=== PATIENT | female | born 1960 | race Caucasian/White ===

== ENCOUNTER 2017-03-05 10:56 | Emergency (ER) | payer BC ==
--- NOTE | ~2017-03-05 | US67 ---
[facility] A Service of [facility] RADIOLOGY TEXT RESULTS PATIENT: MELINA GARCIA LOCATION: SED : 56 UNIT #: [id number] AGE: [address]: Merlin Gipson MD SEX: F ORDER DR: [id number] [address] [address] [id number] E MR#: [id number] Acc #: [id number] NAME: MELINA GARCIA : 1960 SEX: F STUDY DATE/TIME: 03/05/2017 11:41 UNIT: SED ROOM: STUDY DESCRIPTION: Gallbladder Attending Physician: Merlin Gipson M.D. Ordering Physician: Merlin Gipson M.D. Primary Care Physician: Malka Dobson A.P.R.N. MEDICAL IMAGING REPORT This report is preliminary unless electronic signature is present. EXAM Gallbladder sonogram HISTORY 56-year-old female right upper quadrant pain for 1 day. No prior surgery. FINDINGS Real time examination demonstrates diffuse increased echogenicity of the liver which may indicate fatty infiltration. Study is technically limited due to patient's body habitus. No ductal dilatation is identified. The common duct measures 2.1 mm. Gallbladder is only minimally distended. No definitive gallstones or wall thickening. Pancreas poorly visualized. The right kidney unremarkable except for a exophytic cyst off the lower pole of the right kidney measuring up to 4.4 cm. No free fluid. IMPRESSION 1. A technically limited study due to the patient's body habitus. Patient also had not been n.p.o. for the exam. 2. Minimal gallbladder distension but no findings to suggest acute cholecystitis and no evidence of definitive gallstone disease. 3. 4.4 cm exophytic cyst off the lower pole right kidney. 4. Suspected fatty infiltration liver. Dictated by... Aniyah James M.D. THIS IS AN ELECTRONICALLY VERIFIED REPORT Aniyah James M.D. at 03/05/2017 5:13 PM TYRON/janette TD: 03/05/2017 16:54 JOB #: [id number] [facility] A Service of [facility] RADIOLOGY TEXT RESULTS PATIENT: MELINA GARCIA LOCATION: SED : 56 UNIT #: [id number] AGE: [address]: Merlin Gipson MD SEX: F ORDER DR: MEDICAL IMAGING REPORT Page 1 of 1
--- NOTE | ~2017-03-05 | EKG ---
PATIENT: MELINA GARCIA UNIT #: [id number] Ventricular Rate: 96 BPM Atrial Rate: 96 BPM P-R Interval: 146 ms QRS Duration: 74 ms Q-T Interval: 352 ms QTC Calculation(Bezet): 444 ms P [place]: 62 degrees Calculated R [place]: 42 degrees Calculated T [place]: 38 degrees Diagnosis Line: Normal sinus rhythm Diagnosis Line: Cannot rule out Anterior infarct , age Diagnosis Line: undetermined Diagnosis Line: Abnormal ECG Diagnosis Line: No previous ECGs available Diagnosis Line: Confirmed by BRIAN GARCIA MD ([id number]) on Diagnosis Line: 03/08/2017 10:41:08 AM INTERPRETING MD: JOSE WANG
--- NOTE | ~2017-03-05 | CR72 ---
[facility] A Service of [facility] RADIOLOGY TEXT RESULTS PATIENT: MELINA GARCIA LOCATION: SED : 56 UNIT #: [id number] AGE: [address]: Merlin Gipson MD SEX: F ORDER DR: [id number] [place] [address] [id number] E MR#: [id number] Acc #: [id number] NAME: MELINA GARCIA : 1960 SEX: F STUDY DATE/TIME: 03/05/2017 11:14 UNIT: SED ROOM: STUDY DESCRIPTION: CR Chest Single View Portable Attending Physician: Merlin Gipson M.D. Ordering Physician: Merlin Gipson M.D. Primary Care Physician: Malka Dobson A.P.R.N. MEDICAL IMAGING REPORT This report is preliminary unless electronic signature is present. EXAM Chest portable 03/05/2017 1114 hours HISTORY 56-year-old woman complaining of midsternal chest pain, upper gastric pain radiating to the back since last night, 11:30 p.m. COMPARISON None. FINDINGS Portable upright chest demonstrates low lung volumes. Heart size is at the upper limits of normal. Hilar contours are normal. Lungs are clear and no effusions are seen. IMPRESSION Low lung volume film with no definite acute cardiopulmonary findings. Dictated by... Lea Castellano M.D. THIS IS AN ELECTRONICALLY VERIFIED REPORT Lea Castellano M.D. at 03/05/2017 7:05 PM LIZA/kei TD: 03/05/2017 15:54 JOB #: [id number] MEDICAL IMAGING REPORT Page 1 of 1
[2017-03-05] MEDS ORDERED: ZOCOR (11:18)
[2017-03-05] MEDS ORDERED: LISINOPRIL (11:18)
[2017-03-05] MEDS ORDERED: HCTZ (11:18)
[2017-03-05] MEDS ORDERED: SYNTHROID (11:18)
[2017-03-05 11:27] LABS: BASOPHIL% 0.6 % (0-2.5); EOSINOPHIL# 0.1 X10e3 (0-0.7); EOSINOPHIL% 1.3 % (0.0-7.0); HEMATOCRIT 42.9 % (35.0-45.0); HEMOGLOBIN 14.9 gm/dL (12.0-16.0); LYMPHOCYTE# 1.7 X10e3 (1.0-3.5); LYMPHOCYTE% 20.4 % (17.0-45.0); MEAN CORPUSCULAR HEMOGLOBIN 31.3 PG (28-34); MEAN CORPUSCULAR HGB CONC 34.7 g/dL (30-36); MEAN PLATELET VOLUME 8.3 FL (6.5-11.5); MONOCYTE# 0.7 X10e3 (0-1.0); MONOCYTE% 8.5 % (3.0-12.0); NEUTROPHIL# 5.7 X10e3 (1.5-7.1); NEUTROPHIL% 69.2 % (40-75); PLATELET COUNT 327 X10e3 (140-420); RED BLOOD COUNT 4.76 X10e (3.90-5.30); WHITE BLOOD COUNT 8.2 X10e3 (4.0-10.5)
[2017-03-05 11:29] LABS: DIFF IND NO
[2017-03-05 11:37] LABS: POC - CKMB 2.2 ng/mL (0.0-7.9); POC - MYOGLOBIN 82.8 ng/mL (0.0-169.0); POC - TROPONIN <0.05 ng/mL (<=0.05)
[2017-03-05 11:41] LABS: INR 0.9; PROTHROMBIN TIME (PATIENT) 10.7 SECONDS (9.5-12.4)
[2017-03-05 11:49] LABS: ALBUMIN SERUM 4.6 g/dL (3.5-5.0); BILIRUBIN, DIRECT 0.1 mg/dL (0.0-0.2); BILIRUBIN,INDIRECT 0.6 mg/dL (0.0-0.9); BILIRUBIN,TOTAL 0.7 mg/dL (0.2-2.0); BUN/CREATININE RATIO 18.88; CALCIUM SERUM 10.1 mg/dL (8.4-10.2); CREATININE SERUM 0.9 mg/dL (0.6-1.4); GLOM FILT RATE Estimated 70.5 mL/min (>60); PARTIAL THROMBOPLASTIN TIME 24.8 SECONDS (25.6-38.1); POTASSIUM 3.3 mmol/L (3.5-5.1); PROTEIN TOTAL SERUM 7.9 g/dL (6.0-8.3)
[2017-03-05 12:16] LABS: AMYLASE 20 U/L (0-46); LIPASE 22 U/L (22-51)
[2017-03-05 13:23] LABS: POC - CKMB <1.0 ng/mL (0.0-7.9); POC - TROPONIN <0.05 ng/mL (<=0.05)
== END 2017-03-05 14:16 | disposition home or self-care (01) ==
LOC: SED 10:56
PROVIDERS: Emergency Medicine
DX: K21.9 Gastro-esophageal reflux disease without esophagitis (principal); E78.5 Hyperlipidemia, unspecified; K80.50 Calculus of bile duct without cholangitis or cholecystitis without obstruction; I10 Essential (primary) hypertension; E03.9 Hypothyroidism, unspecified; Z98.890 Other specified postprocedural states; Z88.0 Allergy status to penicillin
CPT/HCPCS: 36415; 71010; 76705; 80048; 80076; 82150; 82553; 83690; 83874; 84484; 85025; 85610; 85730; 93005; 96361; 96374; 96375; 99285; C9113; J2405